=== PATIENT | female | born 2005 | race Caucasian/White ===

== ENCOUNTER 2023-12-30 13:25 | Outpatient (REF) | payer MEDICAID, SELFPAY ==
[2023-12-31 02:07] LABS: CT PCR NOT DETECTED (Not Detect.); NG PCR NOT DETECTED (Not Detect.)
== END 2023-12-30 13:26 | disposition home or self-care (01) ==
LOC: HO.HHCL 13:25
PROVIDERS: Visit Provider Advanced Practice Midwife
DX: N92.6 Irregular menstruation, unspecified (principal); Z11.3 Encounter for screening for infections with a predominantly sexual mode of transmission
CPT/HCPCS: 0353U; 36415; 84702

== ENCOUNTER 2025-04-02 10:06 | Outpatient (REF) | payer MEDICAID, SELFPAY ==
--- OUTSIDE RECORDS SUMMARY | 2025-04-02 09:30 | XMS_ITS | Encounter Summary ---
Author Organization [employer] Address [address] [place] [address] Care Team Providers Care Translator Deaf Name Role Phone [facility] Primary Care Provider [phone] Reason for Visit * Reason Comments Annual Exam Encounter Details Date Type Department Care Team ([facility] st Contact Info) Description 04/02/2025 9:30 AM EDT Office Visit [facility] [address] [place] [address] [facility] [address] [place] [address] Mother currently breast-feeding (Primary Dx); Other fatigue; Arthralgia, unspecified joint; Encounter for immunization Social History Tobacco Use Types Packs/Day Years Used Date Smoking Tobacco: Never Smokeless Tobacco: Never Tobacco Cessation:Counseling Given: Not Answered Alcohol Use Standard Drinks/Week Comments Never 0 (1 standard drink = 0.6 oz pur e alcohol) Depression Answer Date Recorded Patient Health Questionnaire-9 Score 3 04/02/2025 Patient Health Questionnaire-9 Score 3 04/02/2025 Last PHQ-9: Questionnaire Data Not on file 0 04/02/2025 Housing Stability Answer Date Recorded What is your housing situation today? I have allen gilliland 03/25/[address] you li ve. Do you have problems with any of the following? None of the above 03/25/2025 Food Insecurity Answer Date Recorded Within the past 12 months, y ou worried that your food would run out before you got money to buy more: Never True 03/25/2025 Within the past 12 months,th e food you bought just didn't last and you didn't have enough money to get more: Never True Transportation Answer Date Recorded In the past 12 months, has l ack of transportation kept you from medical appts, meetings, work or from getting things needed for daily living? No 03/25/2025 Utilities Answer Date Recorded In the past 12 months, has t he electric, gas, oil or water company threatened to shut off services in your home? No 03/25/2025 Depression Answer Date Recorded Patient Health Questionnaire-2 Score 0 04/02/2025 Internet Access Answer Date Recorded Internet Access Q1 Yes 03/25/2025 Internet Access Q2 Not on file 03/25/2025 Comments Unknown Sex and Gender Information Value Date Recorded Sex Assigned at Female 05/07/2022 10:17 AM EDT Legal Sex Female 10:17 AM EDT Gender Identity Female 05/07/2022 10:17 AM EDT Sexual Orientation Don't know 05/07/2022 10 :17 AM EDT documented as of this encounter Last Filed Vital Signs Vital Sign Reading Time Taken Comments Blood Pressure 110/76 04/02/2025 9:41 AM EDT Pulse 92 04/02/2025 9:41 AM EDT Temperature 37.1 C (98.8 F) 04/02/2025 9:41 AM EDT Respiratory Rate 18 04/02/2025 9:41 AM EDT Oxygen Saturation - - Inhaled Oxygen Concentration - - Weight 85.8 kg (189 lb 3.2 oz) 04/02/2025 9:41 A M EDT Height 149.9 cm (4' 11 ) 04/02/2025 9:41 AM EDT Body Mass Index 38.21 04/02/2025 9:41 AM EDT documented in this encounter Functional Status * Over the past 2 weeks, how often have you been bothered by any of the following problems? Question Answer Date of Assessment Author Patient Health Questionnaire-2 Score 0 04/02/2025 9:42 AM EDT Beverly Law MA * Little interest or pleasure in doing things Answer Date of Assessment Author Not at all 04/02/2025 9:42 AM EDT Beverly Barrios MA * Feeling down, depressed, or hopeless Answer Date of Assessment Author Not at all 04/02/2025 9:42 AM Beverly King MA * Trouble falling or staying asleep, or sleeping too much Answer Date of Assessment Author Not at all 04/02/2025 9:42 AM Beverly King MA * Feeling tired or having little energy Answer Date of Assessment Author Several days 04/02/2025 9:42 AM Beverly King MA * Poor appetite or overeating Answer Date of Assessment Author Several days 04/02/2025 9:42 AM Beverly King MA * Feeling bad about yourself - or that you are a failure or have let yourself or your family down Answer Date of Assessment Author Not at all 04/02/2025 9:42 AM Beverly King MA * Trouble concentrating on things, such as reading the newspaper or watching television Answer Date of Assessment Author Several days 04/02/2025 9:42 AM Beverly King MA * Moving or speaking so slowly that other people could have noticed? Or the opposite - being so fidgety or restless that you have been moving around a lot more than usual. Answer Date of Assessment Author Not at all 04/02/2025 9:42 AM Beverly King MA * Thoughts that you would be better off or hurting yourself in some way Answer Date of Assessment Author Not at all 04/02/2025 9:42 AM Beverly King MA * Patient Health Questionnaire-9 Score Answer Date of Assessment Author 3 04/02/2025 9:42 AM Beverly King MA * How difficult have these problems made it for you to do your work, take care of things at home, or get along with other people? Answer Date of Assessment Author Not difficult at all 04/02/2025 9:42 AM Beverly Cortez MA * Over the last 2 weeks, how often have you been bothered by any of the following problems? Question Answer Date of Assessment Author Feeling nervous, anxious, or on edge 0 04/02/2025 9:42 AM EDT Beverly Lwa MA Not being able to stop or control worrying 0 04/02/2025 9:42 AM EDT Beverly Law MA Worrying too much about different things 0 04/02/2025 9:42 AM EDT Beverly Law MA Trouble relaxing 0 04/02/2025 9:42 AM EDT Beverly Suazo MA Being so restless that it is hard to sit still 0 04/02/2025 9:42 AM EDT Beverly Law MA Becoming easily annoyed or irritable 0 04/02/2025 9:42 AM EDT Beverly Law MA Feeling afraid as if something awful might happen 0 04/02/2025 9:42 AM EDT Beverly Puente MA MARQUITA-7 Total Score 0 04/02/2025 9:42 AM EDT Beverly Law MA documented as of this encounter Plan of Treatment Scheduled Orders Name Type Priority Associated Diagnoses Orde r Schedule Cyclic Citrullinated Peptide (CCP) Antibody (IgG) Lab Routine Other fatigue Arthralgia, unspecified joint Expected: 04/02/2025 (Approximate), Expires: 04/02/2026 Rheumatoid Factor Lab Routine Other fatigue Arthralgia, unspecified joint Expected: 04/02/2025, Expires: 04/02/2026 CBC auto differential Lab Routine Other fatigue Arthralgia, unspecified joint Expected: 04/02/2025 (Approximate), Expires: 04/02/2026 TSH W/Reflex to FT4 Lab Routine Other fatigue Arthralgia, unspecified joint Expected: 04/02/2025 (Approximate), Expires: 04/02/2026 MELVIN Screen,IFA, with Reflex to Titer and Pattern Lab Routine Other fatigue Arthralgia, unspecified joint Expected: 04/02/2025 (Approximate), Expires: 04/02/2026 Comprehensive Metabolic Panel Lab Routine Other fatigue Expected: 04/02/2025 (Approximate), Expires: 04/02/2026 documented as of this encounter Visit Diagnoses Diagnosis Mother currently breast-feeding- Primary Other fatigue Arthralgia, unspecified joint Encounter for immunization documented in this encounter Additional Health Concerns Assessment Noted Time PHQ-9 Depression Total Score: 3 04/02/20 25 9:42 AM EDT documented as of this encounter Care Teams Translator Deaf Relationship Specialty Start Date End Date Sintia Roach FNP [address] [place] [id number] PCP - General Family Medicine 05/27/23 documented as of this encounter
--- OUTSIDE RECORDS SUMMARY | 2025-04-02 11:22 | XMS_ITS | Encounter Summary ---
Author Organization [employer] Address [address] [facility] [address] [place] [address] Care Team Providers Care Tobacco Stripper Hand Name Role Phone [facility] Primary Care Provider [phone] Encounter Details Date Type Department Care Team (Latest Contact Info) Description 04/02/2025 Travel Social History Tobacco Use Types Packs/Day Years Used Date Smoking Tobacco: Never Smokeless Tobacco: Never Alcohol Use Standard Drinks/Week Comments Never 0 [...] AM EDT documented as of this encounter Functional Status * Over the past 2 weeks, how often have you been bothered by any of the following problems? Question Answer Date of Assessment Author Patient Health Questionnaire-2 Score 0 04/02/2025 9:42 AM EDT Beverly Law MA * Little interest or pleasure in doing things Answer Date of Assessment Author Not at all 04/02/2025 9:42 AM MARKIET Beverly Barrios MA * Feeling down, depressed, or hopeless Answer Date of Assessment Author Not at all 04/02/2025 9:42 AM EDT Beverly Barrios MA * Trouble falling or staying asleep, or sleeping too much Answer Date of Assessment Author Not at all 04/02/2025 9:42 AM MARKIET Beverly Barrios MA * Feeling tired or having little energy Answer Date of Assessment Author Several days 04/02/2025 9:42 AM Beverly King MA * Poor appetite or overeating Answer Date of Assessment Author Several days 04/02/2025 9:42 AM EDBeverly Adams MA * Feeling bad about yourself - [...] 9:42 AM EDT Beverly Barrios MA * Thoughts that you would be better off or hurting yourself in some way Answer Date of Assessment Author Not at all 04/02/2025 9:42 AM MARKIET Beverly Barrios MA * Patient Health Questionnaire-9 Score Answer Date of Assessment Author 3 04/02/2025 9:42 AM EDT Beverly Barrios MA * How difficult have these problems made it for you to do your work, take care of things at home, or get along with other people? Answer Date of Assessment Author Not difficult at all 04/02/2025 9:42 AM EDT Beverly Mendoza MA * Over the last 2 weeks, how often have you been bothered by any of the following problems? Question Answer Date of Assessment Author Feeling nervous, anxious, or on edge 0 04/02/2025 9:42 AM EDT Beverly Law MA Not being able to stop or control worrying 0 04/02/2025 9:42 AM EDT Beverly Law MA Worrying too much about different things 0 04/02/2025 9:42 AM MARKIET Beverly Law MA Trouble relaxing 0 04/02/2025 9:42 AM EDT Beverly Suazo MA Being so restless that it is hard to sit still 0 04/02/2025 9:42 AM MARKIET Beverly Law MA Becoming easily annoyed or irritable 0 04/02/2025 9:42 AM MARKIET Beverly Law MA Feeling afraid as if something awful might happen 0 04/02/2025 9:42 AM EDT Beverly Puente MA MARQUITA-7 Total Score 0 04/02/2025 9:42 AM MARKIET Beverly Law MA documented as of this encounter Plan of Treatment Not on file documented as of this encounter Visit Diagnoses Not on filedocumented in this encounter Additional Health Concerns Assessment Noted Time PHQ-9 Depression Total Score: 3 04/02/20 25 9:42 AM EDT documented as of this encounter Care Teams Tobacco Stripper Hand Relationship Specialty Start Date End Date Sintia Roach FNP [address] [place] [id number] PCP - General Family Medicine 05/27/23 documented as of this encounter
--- OUTSIDE RECORDS SUMMARY | 2025-04-02 11:22 | XMS_ITS | Encounter Summary ---
Author Organization [employer] Address [address] [facility] [address] [place] [address] Care Team Providers Care Licensed Prosthetist/Orthotist Name Role Phone Avis De La Cruz [facility] Primary Care Provider [phone] [facility] Primary Care Provider [phone] Reason for Visit * Reason Comments Med Refill Encounter Details Date Type Department Care Team ([facility] st Contact Info) Description 05/24/2023 Refill [facility] [address] [place] [address] [facility] [address] [place] [address] Seasonal allergies; Iron deficiency Social History Tobacco Use Types Packs/Day Years Used Date Smoking Tobacco: Never Smokeless Tobacco: Never Alcohol Use Standard Drinks/Week Comments Never 0 (1 standard drink = 0.6 oz pur e alcohol) Depression Answer Date Recorded Patient Health Questionnaire-9 Score 0 10/01/2022 Housing Stability Answer Date Recorded What is your housing situation today? I have allen gilliland 05/13/[address] you li ve. Do you have problems with any of the following? None of the above 05/13/2023 Food Insecurity Answer Date Recorded Within the past 12 months, y ou worried that your food would run out before you got money to buy more: Not on file 05/13/2023 Within the past 12 months,th e food you bought just didn't last and you didn't have enough money to get more: Never True 12/2022 Transportation Answer Date Recorded In the past 12 months, has l ack of transportation kept you from medical appts, meetings, work or from getting things needed for daily living? No 05/13/2023 Utilities Answer Date Recorded In the past 12 months, has t he electric, gas, oil or water company threatened to shut off services in your home? No 05/13/2023 Depression Answer Date Recorded Patient Health Questionnaire-2 Score 0 10/01/2022 Comments Unknown Sex and Gender Information Value Date Recorded Sex Assigned at Female 05/07/2022 10:17 AM EDT Legal Sex Female 10:17 AM EDT Gender Identity Female 05/07/2022 10:17 AM EDT Sexual Orientation Don't know 05/07/2022 10 :17 AM EDT documented as of this encounter Plan of Treatment Not on file documented as of this encounter Visit Diagnoses Diagnosis Seasonal allergies Allergic rhinitis, cause unspecified Iron deficiency Disorders of iron metabolism documented in this encounter Additional Health Concerns Assessment Noted Time PHQ-9 Depression Total Score: 0 10/02/19 9:48 AM EDT documented as of this encounter Care Teams Licensed Prosthetist/Orthotist Relationship Specialty Start Date End Date Avis De La Cruz FNP [address] [place] [address] PCP - General Family Medicine 10/01/22 05/26/23 Sintia Roach FNP [address] [place] [address] PCP - General Family Medicine 05/27/23 documented as of this encounter
--- OUTSIDE RECORDS SUMMARY | 2025-04-02 11:22 | XMS_ITS | Encounter Summary ---
Author Organization [employer] Address [address] [facility] [address] [place] [address] Care Team Providers Care Shield Cleaner Name Role Phone [facility] Primary Care Provider [phone] Reason for Visit * Reason Onset Date Comments Chart prep 04/01/2025 Encounter Details Date Type Department Care Team ([facility] st Contact Info) Description 04/01/2025 Telephone [facility] [address] [place] [address] [facility] [address] [place] [address] Chart prep Social History Tobacco Use Types Packs/Day Years [...] AM EDT documented as of this encounter Miscellaneous Notes * Telephone Encounter - Ester Hammer MA - 04/01/2025 11:06 AM EDT Chart Prep Labs: not applicable Images: not applicable Referrals: complete Vaccines due: Covid, Flu, PCV20, and MCV4 Screenings: pap smear, STI screening, and LMP Overdue care gaps: SBIRT, PHQ-9, and Disability screen documented in this encounter Plan of Treatment Not on file documented as of this encounter Visit Diagnoses Not on filedocumented in this encounter Additional Health Concerns Assessment Noted Time PHQ-9 Depression Total Score: 0 10/02/19 9:48 AM EDT documented as of this encounter Care Teams Shield Cleaner Relationship Specialty Start Date End Date Sintia Roach FNP [address] [place] [address] PCP - General Family Medicine 05/27/23 documented as of this encounter
--- OUTSIDE RECORDS SUMMARY | 2025-04-02 11:22 | XMS_ITS | Clinical Summary ---
Author Organization [employer] Address [address] [facility] 7[address] [place] [address] Care Team Providers Care Refrigeration Tech Name Role Phone Sintia Roach [facility] Primary Care Provider Allergies Active Allergy Reactions Criticality Noted Date Comments Peanut-Containing Drug Products 10/07 Medications EPINEPHrine (Epipen) 0.3 MG/0.3ML injection syringeIndicati ons:Seasonal allergies Use as directed for anaphylaxis. Peanut and tree nut allergy 1 each 1 3 Active loratadine (Claritin) 10 MG tabletIndicatio ns:Seasonal allergies Take 1 tablet (10 mg) by mouth in the morning. 30 tablet 3 Active fluticasone (Flonase) 50 MCG/ACT nasal sprayIndication s:Seasonal allergies Administer 1-2 sprays into each nostril in the morning. Shake gently. Before first use, prime pump. After use, clean tip and replace cap. 16 g 2 3 Active multivitamin () 27-0.8 MG tabletIndicatio ns:Mother currently breast-feeding Take 1 tablet by mouth Once per day. 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 Encounters Date Type Department Care Team Description 04/02/2025 9:30 AM EDT Office Visit [facility] [address] [place] [address] Sintia Roach FNP Mother currently breast-feeding (Primary Dx); Other fatigue; Arthralgia, unspecified joint; Encounter for immunization 04/02/2025 Travel 04/01/2025 Telephone [facility] [address] [place] [address] Sinita Roach FNP Chart prep 03/25/2025 Patient Outreach [facility] [address] [place], [place] [id number] Sintia Roach FNP 03/22/2025 3:45 PM EDT Office Visit [facility] [address] [place] [address] Reyna Velazquez, OD Myopia, bilateral (Primary Dx) 03/22/2025 Travel 02/17/2025 11:30 AM EDT Office Visit [facility] [address] [place] [address] Shyla Mcdonnell, OD High myopia, bilateral (Primary Dx) 02/17/2025 Travel 01/28/2025 9:45 AM EDT Office Visit [facility] [address] [place], [place] [phone] Reyna Velazquez, OD High myopia, bilateral (Primary Dx) 01/28/2025 Travel 01/27/2025 Travel 01/18/2025 Telephone [facility] [address] [place] [address] Sintia Roach FNP Nurse Triage from Last 3 Months Immunizations Immunization Administration Dates Next Due DTaP 09/19/2007, 5,01/13/2004,2003 DTaP / Hep B / IPV 03/16/2004 HPV 9-Valent 03/30/2016,09/05/2015,03/25/2015 Hep A, ped/adol, 2 dose 03/25/2015,08/17/2014 Hep B, Adolescent or Pediatric 12/25/2004,2003 HiB, unspecified 03/16/2004,01/13/2004, 4 Hib (HbOC) 03/16/2004,01/13/2004,2003 Hib (PRP-T) 12/25/2004 Influenza injectable quadriv alent IIV4 with preservative 03/30/2016,08/17/2014,04/27/2011,2009 Influenza injectable quadriv alent preservative free 09/02/2020,06/08/2019,03/25/2015 Influenza, injectable, quadr ivalent, preservative free, pediatric 06/28/2006,2005,2004,2003 Influenza, seasonal, injecta ble, preservative free 04/02/2025 Social History Tobacco Use Types Packs/Day Years [...] Don't know 05/07/2022 10 :17 AM EDT Last Filed Vital Signs Vital Sign Reading [...] Mass Index 38.21 04/02/2025 9:41 AM EDT Plan of Treatment Health Maintenance Due Date Last Done Comments HIV Screening 2003 Pneumococcal Vaccine: Pediatrics (0 to 5 Years) and At-Risk Patients (6 to 49) Years (1 of 1 - PPSV23) 2009 12/25/2004, 12/25/2004, 03/16/2004, Additional history exists Family Planning (PISQ) 2018 Meningococcal B Vaccine (1 of 2 - Standard) 2019 Hepatitis C Screening 2021 Pap Smear 2024 Chlamydia and Gonorrhea Screening 12/29/2024 12/30/2023 COVID-19 Vaccine ( - season) 2025 SDOH Screening 03/25/2026 03/25/2025 Alcohol/Substance Use Screening 04/02/2026 04/02/2025 Depression Screening 04/02/2026 04/02/2025, 04/02/20 Disability Screening 04/02/2026 04/02/2025 Tobacco Screening 04/02/2026 04/02/2025 Lipid Panel 10/02/2027 10/01/2022, 07/19/2021 DTaP/Tdap/Td Vaccines (8 - Td or Tdap) 05/12/2034 05/12/2024, 03/25/2015, 09/19/2007, Additional history exists Zoster Vaccines (1 of 2) 2053 HIB Vaccines Completed 12/25/2004, 03/2004, 03/16/2004, Additional history exists Hepatitis B Vaccines Completed 12/25/2004, 03/16/2004, 2003 IPV Vaccines Completed 09/19/2007, 03/2004, 01/13/2004, Additional history exists Hepatitis A Vaccines Completed 03/25/2015, 03/25/2015, 08/17/2014, Additional history exists HPV Vaccines Completed 03/30/2016, 03/09, 09/05/2015, Additional history exists Meningococcal Vaccine Completed 09/02/2020 , 09/02/2020, 03/25/2015, Additional history exists RSV Patients and Patients Aged 60 years or older Completed 06/09/2024 Influenza Vaccine Completed 04/02/2025, , 04/14/2024, Additional history exists RSV under 20 months Aged Out No longe r eligible based on patient's age to complete this topic Rotavirus Vaccines Aged Out No longer eligible based on patient's age to complete this topic Procedures Procedure Name Priority Date/Time Associated Diagnosis Comments CHLAMYDIA/N. GONORRHOEAE RNA, TMA, UROGENITAL Routine 12/30/2023 1:17 PM EDT Screening examination for venereal disease LIPID PANEL, STANDARD Routine 10/01/2022 10:18 AM EDT Class 2 obesity due to excess calories without serious comorbidity with body mass index (BMI) of 37.0 to 37.9 in adult from Last 3 Months or Most Recently Relevant to Health Maintenance Results * Chlamydia/N. Gonorrhoeae RNA, TMA, Urogenitial (12/30/2023 1:17 PM EDT) CT PCR NOT DETECTED Not Detect. [facility] Comment:A not detected test result does not exclude the possibilityof infection because test results can be affected byimproper specimen collection, concurrent antibiotic therapy,or the number of organisms in the specimen which may bebelow the sensitivity of the test. As with many diagnostictests, results from the Xpert CT/NG assay should beinterpreted in conjunction with other laboratory andclinical data available to the clinician.Xpert CT/NG performance has not been evaluated in patientsless than 14 years of age. The assay should not be used forthe evaluationof suspected sexual abuse or for other medico-legalindications. Additional testing is recommended in anycircumstance when false positive or false negative resultscould lead to adverse medical, social or psychologicalconsequences. NG PCR NOT DETECTED Not Detect. [facility] Comment:A not detected test result does not exclude the possibilityof infection because test results can be affected byimproper specimen collection, concurrent antibiotic therapy,or the number of organisms in the specimen which may bebelow the sensitivity of the test. As with many diagnostictests, results from the Xpert CT/NG assay should beinterpreted in conjunction with other laboratory andclinical data available to the clinician.Xpert CT/NG performance has not been evaluated in patientsless than 14 years of age. The assay should not be used forthe evaluationof suspected sexual abuse or for other medico-legalindications. Additional testing is recommended in anycircumstance when false positive or false negative resultscould lead to adverse medical, social or psychologicalconsequences. Urine (Urine, Random) 12/30/2023 1:17 PM EDT 12/30/2023 6:43 PM EDT Narrative [facility] - 12/31/2023 2:07 AM EDT Urine Magdalena Gaines [facility] MICROBIOLOGY - GENERA L ORDERABLES Final Result [facility] [address] [place] [phone] * (ABNORMAL) Lipid Panel, Standard (10/01/2022 10:18 AM EDT) Cholesterol, Total 123 <170 mg/dL [facility] HDL Cholesterol 42(L) >45 mg/dL [facility] [place] [employer] Triglycerides 53 <90 mg/dL [employer] LDL Cholesterol 68 <110 mg/dL (calc) [facility] [facility] [facility] [employer] Comment: LDL-C is now calculated using the Vanessa calculation, which is a validated novel method providing better accuracy than the Friedewald equation in the estimation of LDL-C. Tesfaey SS et al. SEVERIANO. 2013;310(19): 4951-3075 (http://education.[employer]oir [employer].CrowdGather/faq/RBR999) Chol/HDLC Ratio 2.9 <5.0 (calc) [facility] [facility] [facility] Non-HDL Cholesterol 81 <120 mg/dL (calc) [facility] Comment: For patients with diabetes plus 1 major ASCVD risk factor, treating to a non-HDL-C goal of <100 mg/dL (LDL-C of <70 mg/dL) is considered a therapeutic option. Blood Venous blood specimen / Unknown 10/01/2022 10:18 AM EDT 10/01/2022 10:19 AM EDT Narrative [facility] - 10/01/2022 9:28 PM EDT FASTING:YES FASTING: YES [facility] [employer]INE[employer] LAB BLOOD ORDERABLES Final Re sult [facility] [address] [place] [phone] [employer] [address] [place] [phone] from Last 3 Months or Most Recently Relevant to Health Maintenance [place] [address] [place] [address] STANDARD Care Teams Refrigeration Tech Relationship Specialty Start Date End Date Sintia Roach FNP [address] [place] [id number] PCP - General Family Medicine 05/27/23
[2025-04-02 11:26] LABS: MANUAL DIFF FLAG NO
[2025-04-02 11:38] LABS: Hematocrit 40.9 % (37.0-47.0); Hemoglobin 12.8 g/dl (12.0-16.0); Imm Gran Abs Auto 0.02 X10*3/uL (0.00-0.03); Imm Gran Pct Auto 0.3 % (0.0-0.4); Lymphocytes Absolute Auto 2.4 X10*3/uL (1.2-4.9); Mean Corpuscular HGB Conc 31.3 g/dl (31.0-35.0); Mean Corpuscular Hemoglobin 26.2 pg (27.0-33.0); Mean Corpuscular Volume 83.6 fL (80.0-98.0); NRBC Abs Auto 0.000 X10*3/uL (0.0-0.012); NRBC Pct Auto 0.0 /100WBC (0.0-0.2); Platelet Count 269 X10*3/uL (160-400); Red Blood Count 4.89 X10*6/uL (4.20-5.50); White Blood Count 7.7 X10*3/uL (4.8-10.8)
[2025-04-02 12:17] LABS: Alanine Aminotransferase 14 U/L (0-31); Albumin Level 4.1 g/dL (3.5-5.0); Alkaline Phosphatase 95 U/L (39-117); Anion Gap 9 (12-20); Aspartate Amino Transferase 15 U/L (5-31); Blood Urea Nitrogen 12 mg/dL (9-16); Calcium 8.7 mg/dL (8.4-10.2); Carbon Dioxide 26 mmol/L (22-29); Chloride 110 mmol/L (96-108); Estimated Glomerular Filt Rate > 60; Potassium 4.0 mmol/L (3.3-5.1); Sodium 141 mmol/L (135-145); Total Protein 6.9 g/dL (6.5-8.0)
[2025-04-05 13:54] LABS: Anti Nuclear Antibody Screen NEGATIVE (NEGATIVE)
== END 2025-04-02 10:07 | disposition home or self-care (01) ==
LOC: HO.HHCL 10:06
PROVIDERS: PCP Registered Nurse; Visit Provider Registered Nurse
DX: R53.83 Other fatigue (principal); M25.50 Pain in unspecified joint
CPT/HCPCS: 36415; 80053; 84443; 85025; 86038; 86200; 86431